=== PATIENT | male | born 1945 | race Asian ===

== ENCOUNTER 2024-08-17 14:49 | Outpatient (AMB) | payer MEDICARE, SELFPAY ==
--- NOTE | 2024-08-17 15:12 | A.OFFPC_ITS ---
Vital Signs 08/17/24 15:14 Height 6 ft Weight 216 lb 8 oz BMI 29.4 BP 100/70 Blood Pressure Location Lt brachial Position Sitting Pulse 68 Pulse Source Pulse Oximeter Pulse Oximetry (%) 97 Oxygen Delivery Method Room Air Intake Visit Reasons: New Patient Intake Note: Patient is a new patient here to establish care for HTN, Psoriasis, Cholesterol. Transferring care from Dr Cherry ([facility]). Medical records have not been requested and have not received. Reading Instructor Required: No Plain Clothes Police Officer: Present Accompanied by: Daughter Allergies No Known Allergies Allergy (Verified 08/17/24 15:21) Tobacco use date assessed: 08/17/24 Fall risk assessment: 1 Fall in past year (06/09/24) Last assessed Fall Risk: 08/17/24 Dental Screening Dental Screen Date: 08/17/24 Did you have a dental visit in the last 12 months?: Yes Did you have a dental problem in the last 6 months where you did not have access to dental care?: No Was dental information given to patient?: Patient has dentist [facility] Medical History (Updated 08/24/24 @ 15:11 by Malcolm Garner MD) Psoriasis Essential hypertension Surgical History (Updated 08/17/24 @ 15:26 by GABRIELLA Pickard) History of umbilical hernia repair Social History (Updated 08/17/24 @ 15:27 by GABRIELLA Pickard) Housing: House Alcohol intake: current Alcohol intake frequency: a few times a week Patient Tobacco Use Status: Former Tobacco user e-Cigarette/Vaping Use: Never Used Second Hand Smoke Exposure: Yes service: No Current occupational status: retired Cognitive needs: No Hearing needs: Yes (Hearing aide) Vision needs: Yes (Glasses) Questionnaire PHQ-9 Over the last 2 weeks, how often have you been bothered by any of the following problems? 1. Little interest or pleasure in doing things: not at all 2. Feeling down, depressed, or hopeless: not at all 3. Trouble falling or staying asleep, or sleeping too much: not at all 4. Feeling tired or having little energy: not at all 5. Poor appetite or overeating: not at all 6. Feeling bad about yourself - or that you are a failure or have let yourself or your family down: not at all 7. Trouble concentrating on things, such as reading the newspaper or watching television: not at all 8. Moving or speaking so slowly that other people could have noticed. Or the opposite - being so fidgety or restless that you have been moving around a lot more than usual: not at all 9. Thoughts that you would be better off or of hurting yourself in some way: not at all Total score: 0 Depression Screening Interpretation: Negative Depression Screening Done: Yes Source: Developed by Drs. Jewel West, Charo De La Garza, Addy Singh and colleagues, with an educational ernesto from [employer]. Thrive Questionnaire Date Thrive assessed: 08/17/24 I am a: Patient What is your living situation today?: I have a steady place to live Within the past 12 months, did the food you bought not last and you didn't have the money to get more?: Never true Within the past 12 months, did you worry whether your food would run out before you got money to buy more?: Never true Do you have trouble paying for medicines?: No Do you have trouble getting transportation to medical appointments?: No Do you have trouble paying your heating and electricity bill?: No Do you have trouble taking care of your child, family member or friend?: No Do you have trouble with day-to-day activities such as bathing, preparing meals, shopping, managing finances, etc.?: No Are you currently unemployed and looking for a job?: No Are you interested in more education?: No Please select the resources that you would like help with: None Currently or been in a relationship where the following occur: No concerns reported THRIVE Score: 0 AUDIT C Alcohol Use Questionnaire (AUDIT-C) 1. How often do you have a drink containing alcohol?: 2-3 times a week 2. How many drinks containing alcohol do you have on a typical day when you are drinking?: 1 or 2 3. How often do you have six or more drinks on one occasion?: Never Total Score: 3 PRACHI-7 AMB Questionnaire PRACHI-7 Date PRACHI - 7 assessed: 08/17/24 Feeling nervous, anxious, or on edge: 0 = Not at all Not being able to stop or control worryin = Not at all Worrying too much about different things: 0 = Not at all Trouble relaxin = Not at all Being so restless that it is hard to sit still: 0 = Not at all Becoming easily annoyed or irritable: 0 = Not at all Feeling afraid as if something awful might happen: 0 = Not at all Total PRACHI-7 score (0-4 normal; 5-9 mild; 10-14 moderate; 15-21 severe): 0 Source: Developed by Drs. Jewel West, Charo De La Garza, Addy Singh and colleagues, with an educational ernesto from [employer]. Physical exam (Primary Care) Vital Signs: Last Vital Signs Pulse 68 08/17/24 15:14 BP 100/70 08/17/24 15:14 Pulse Ox 97 08/17/24 15:14 Oxygen Delivery Method Room Air 08/17/24 15:14 BMI result Body Mass Index 29.4 Tobacco/Smoking Status: Tobacco use Status Tobacco use date assessed 08/17/24 08/17/24 15:29 Patient Tobacco Use Status Former Tobacco user 08/17/24 15:29 e-Cigarette/Vaping Use Never Used 08/17/24 15:29 PHQ-9: PHQ-9 Score PHQ-9: Total score 0 08/17/24 15:29 Depression Screening Interpretation: Negative Thrive Assessment: Date of Thrive Assessment Date Thrive assessed 08/17/24 08/17/24 15:29 Currently or been in a relationship where the following occur: No concerns reported Coding Level of Care Code New Pt Level 4 (20154) Complex EM visit Add On G2211 Diagnoses Essential hypertension I10 Psoriasis L40.9 Assessment & Plan Assessment & Plan (1) Essential hypertension: Code(s): I10 - Essential (primary) hypertension Category: Medical Plan: BP is trending downwards. Compliant with medications. Counselling on diet and exercise done. (2) Psoriasis: Code(s): L40.9 - Psoriasis, unspecified Category: Medical Plan: Patient does have extensive psoriasis on his lower ext and back, around the lower back and intergluteal cleft. Currently he has no symptoms. Once he finds a PCP provider in the [place] area, he will schedule a dermatology appt and maybe a candidate for biologicals Plan History of Present Illness The patient is an 79-year-old male presenting with essential hypertension and peripheral neuropathy. The patient reports having hypertension, managed through medications including Lisinopril and Hydrochlorothiazide. He recalled high blood pressure readings, with concern over numbers that were high at times due to dietary factors but currently showing improvement. Additionally, he experiences peripheral neuropathy characterized by hypersensitivity and discomfort in the toes, noted as an electric shock-like sensation. This was started fairly recently after falling and worsens in cold. He reported taking multivitamins including B12, which he initiated about two months ago, noting a deficiency that potentially contributes to his symptoms. No issues were discussed regarding B12 prior to this, though there is a backdrop of precaution from a family history standpoint. Psoriasis, which was mild, has previously been treated but is currently not under active treatment, and the patient reports occasional flare- ups in different areas, with no significant current symptoms or discomfort impacting quality of life. Social History - Exercises: Previously walked 5,000 to 8,000 steps but due to weather is currently walking around 3,000 steps daily. - Diet: Includes non-vegetarian items and balanced intake with salads; occasional meal-skipping was reported. - Housing: Discusses treadmill exercise at home; recent household repairs noted. - Family Dynamics: Mentions family support and regular interactions. Review of Systems - Neurological: Reports hypersensitivity and discomfort in toes, electric shock- like pain sensation. - Dermatological: Reports occasional psoriasis flare-ups with dryness and itching, particularly on legs, back, and elbow. - Ophthalmic: Denies vision changes affecting daily activity; slight concerns with possible cataracts, managed by regular check-ups. Physical Exam General: Cooperative and healthy appearing Nutritional Appearance: Well nourished Orientation/consciousness: Patient oriented x3 Limitations: No limitations Head: Normal to inspection General: Appearance normal, both eyes and all related structures Neck: Normal visual inspection Chest: Normal palpation of entire chest wall Respiratory: Normal respiratory effort Neurology: Patient oriented x3 Results Plan 1. - Maintain exercise regimen with modifications due to seasonal limitations; use treadmill at home: - Psoriasis: No new treatment is needed; apply moisturizing oils and consider mild steroid creams for flare-ups as needed. Patient was informed and verbally consented to the use of an ambient scribe for clinic note documentation during this visit. Discussion Notes I discussed with the patient the management of his hypertension, emphasizing the importance of medication adherence. We reviewed the role of potential vitamin deficiencies in neuropathy symptoms, recommending that he continues B12 supplements. Regarding his psoriasis, I explained that severe treatment is unnecessary at this point since it is not causing significant distress. I advised using moisturizers to manage dryness. We talked about the impact of exercise and encouraged routine walking indoors given current weather conditions. Lastly, we addressed the monitoring of age-related eye conditions, overviews for cataract progress, and regular follow-up with ophthalmology was advised. Patient Instructions - Continue taking Lisinopril and Hydrochlorothiazide as prescribed for blood pressure. - Regularly take B12 supplements as you have been doing. - Use moisturizing creams or oils for psoriasis as needed and consult if symptoms progress. - Maintain a manageable home exercise routine, using a treadmill when possible. - Balance diet with consistent meal intake, avoiding frequent meal skipping. - Schedule and attend routine eye examinations to monitor eye health. - Reach out through text if any immediate medical concerns arise.
[2024-08-17 15:14] VITALS: BP 100/70; PULSE 68; O2SAT 97; BMI 29.4
== END 2024-08-17 16:00 | disposition home or self-care (01) ==
PROVIDERS: PCP Internal Medicine; Visit Provider Internal Medicine
DX: I10 Essential (primary) hypertension (principal); L40.9 Psoriasis, unspecified

== ENCOUNTER → 2024-08-17 14:49 | Outpatient (BNVA) | payer MEDICARE, SELFPAY | PROVIDERS: PCP Internal Medicine; Visit Provider Internal Medicine ==